=== PATIENT | female | born 1965 | race Caucasian/White ===

== ENCOUNTER 2018-10-17 18:08 | Emergency (ER) | payer MEDICAID ==
[~2018-10-17] VITALS: Ht 157.5 cm; Wt 53.0 kg
[2018-10-17 18:31] VITALS: BP 96/63
[2018-10-17] MEDS ORDERED: KETOROLAC 30 MG/1 ML ONE (18:48)
[2018-10-17] MEDS ORDERED: KETOROLAC 30 MG/1 ML IVPush ONE (19:00)
[2018-10-17] MEDS ORDERED: KETOROLAC 30 MG/1 ML IM ONE (19:00)
== END 2018-10-17 19:29 | disposition home or self-care (01) ==
LOC: ED 19:25
DX: M54.41 Lumbago with sciatica, right side (principal); G89.29 Other chronic pain; K21.9 Gastro-esophageal reflux disease without esophagitis; J44.9 Chronic obstructive pulmonary disease, unspecified
CPT/HCPCS: 96372; 99283; J1885

== ENCOUNTER 2019-02-19 13:35 | Emergency (ER) | payer MEDICAID ==
[~2019-02-19] VITALS: Ht 160 cm; Wt 50.8 kg
[2019-02-19 14:12] VITALS: BP 97/49
== END 2019-02-19 16:02 | disposition home or self-care (01) ==
LOC: ED 15:54
DX: S44.21XA Injury of radial nerve at upper arm level, right arm, initial encounter (principal); I80.8 Phlebitis and thrombophlebitis of other sites; J44.9 Chronic obstructive pulmonary disease, unspecified; K21.9 Gastro-esophageal reflux disease without esophagitis; F17.200 Nicotine dependence, unspecified, uncomplicated; X58.XXXA Exposure to other specified factors, initial encounter; Y93.89 Activity, other specified; Y92.89 Other specified places as the place of occurrence of the external cause; Y99.8 Other external cause status
CPT/HCPCS: 29125; 72050; 99284

== ENCOUNTER 2020-11-10 00:54 | Inpatient (IN) | payer MEDICAID ==
[~2020-11-10] VITALS: Ht 160 cm; Wt 50.5 kg
[~2020-11-10 00:54] MED LIST: BUDE10.2 INH; FLUO20CA23 PO; GABA300C10 PO; METH500T97 PO; SIMV5TAB14 PO; TRAZ50TA66 PO
--- NOTE | 2020-11-10 01:53 | NUR ---
PT HAS C/O DIZZINESS AND WEAKER THAN NORMAL R LEG FOR THE LAST COUPLE WEAKS. PT A/O X4. PT ON MONITOR WITH PT VSS. PT HAS FAMILY AT BED SIDE
[2020-11-10 01:57] LABS: MEAN CORPUSCULAR HGB CONC 34.8 g/dL (32.4-35.8); MEAN PLATELET VOLUME 7.7 fL (7.4-10.4); PLATELET COUNT 156 x10^3/uL (130-400); RED BLOOD COUNT 3.59 x10^6/uL (3.82-5.3); RED CELL DISTRIBUTION WIDTH 13.5 % (9.6-15.2)
[2020-11-10 02:07] LABS: ALBUMIN 3.2 g/dL (3.4-5.0); ANION GAP 11 mmol/L (5-15); CALCIUM 8.3 mg/dL (8.5-10.1); CHLORIDE 106 mmol/L (98-107); CREATININE 0.29 mg/dL (0.55-1.02)
[2020-11-10 02:32] LABS: MD YES
[2020-11-10 02:36] LABS: LYMPHS% (MANUAL) 50 % (22-44); MONOS% (MANUAL) 10 % (2-9); SEGS% (MANUAL) 40 % (42-75)
[2020-11-10 02:37] LABS: <PLATELET ESTIMATE> ADEQUATE; <PLT MORPHOLOGY> NORMAL PLT MORPH
--- NOTE | 2020-11-10 02:39 | NUR ---
PT RESTING IN BED WITH FAMILY AT PT SIDE. PT A/O X4 WITH UNLABORED EQUAL BREATHS. PT ON MONITOR WITH PT VSS. PT DENIED ANY CURRENT WANTS OR NEEDS AT THIS TIME.
--- NOTE | 2020-11-10 03:00 | NUR ---
REPORT TO SALAS DUARTE
--- NOTE | 2020-11-10 03:01 | NUR ---
bedside report from lindsay rn, pt care transferred at this time. pt nad, resting on gurney, vss, no change in condition, bed in lowest, rails engaged, call light on lap, significant other at , [facility].
[2020-11-10] MEDS ORDERED: ATOR10TA9 PO (03:05)
[2020-11-10] MEDS ORDERED: POTASSIUM CHLORIDE 40 MEQ in SODIUM CHLORIDE 0.9% 500 ML IV ONE ×2 (03:30→08:30)
[2020-11-10] MEDS ORDERED: POTASSIUM CHLORIDE 20 MEQ TAB.ER.PRT PO ONE (03:30)
[2020-11-10] MEDS ORDERED: POTASSIUM CHLORIDE 20 MEQ TAB.ER.PRT ONE (03:44)
[2020-11-10] MEDS ORDERED: METH-640 PO (03:58)
[2020-11-10] MEDS ORDERED: OXYBUTYNIN PO (03:58)
[2020-11-10] MEDS ORDERED: LAMO100T8 PO (03:59)
[2020-11-10 04:47] LABS: ALANINE AMINOTRANSFERASE 38 U/L (12-78); BILIRUBIN, DIRECT 0.2 mg/dL (0.1-0.2); BILIRUBIN,INDIRECT 0.1 mg/dL (0.0-2.0); BILIRUBIN,TOTAL 0.3 mg/dL (0.2-1.0)
[2020-11-10 04:48] LABS: ALKALINE PHOSPHATASE 131 U/L (45-117); TOTAL PROTEIN 6.6 g/dL (6.4-8.2)
[2020-11-10] MEDS ORDERED: ACETAMINOPHEN 325 MG TABLET PO PRN (05:00)
[2020-11-10] MEDS ORDERED: ONDANSETRON 2MG/ML, 2ML IVPush PRN (05:00)
[2020-11-10] MEDS ORDERED: ENALAPRILAT 1.25 MG/ML, 2ML IVPush PRN (05:00)
[2020-11-10] MEDS: GABAPENTIN 300 MG CAPSULE PO SCH ×4 (05:47→21:18)
[2020-11-10 06:42] VITALS: BP 129/75
[2020-11-10] MEDS ORDERED: MAGNESIUM SULFATE PMX 2GM/50ML 50 ML IV ONE (08:30)
[2020-11-10] MEDS: FLUTICASONE/VILANTEROL 200-25MCG/INH INH SCH (09:00)
[2020-11-10] MEDS: METHOCARBAMOL 750 MG TABLET PO SCH ×3 (09:22→21:18)
[2020-11-10 10:05] LABS: AMPHETAMINE SCREEN, URINE Negative (Negative); BARBITURATE SCREEN, URINE Negative (Negative); BENZODIAZEPINE SCREEN, URINE Negative (Negative); CANNABINOID SCREEN, URINE Negative (Negative); COCAINE SCREEN, URINE Negative (Negative); METHADONE SCREEN, URINE Negative (Negative); OPIATE SCREEN, URINE Negative (Negative)
[2020-11-10 11:09] LABS: ALBUMIN 3.5 g/dL (3.4-5.0); ANION GAP 5 mmol/L (5-15); CALCIUM 8.8 mg/dL (8.5-10.1); CHLORIDE 107 mmol/L (98-107); CREATININE 0.38 mg/dL (0.55-1.02)
[2020-11-10] MEDS: POTASSIUM CHLORIDE 20 MEQ, MAGNESIUM SULFATE 2 GM, THIAMINE 200 MG, MVI ADULT 10 ML, FO... IV SCH (13:11)
[2020-11-10 13:42] VITALS: BP 149/71
[2020-11-10] MEDS ORDERED: LORazepam 1MG TABLET PO PRN ×4 (15:30)
[2020-11-10] MEDS ORDERED: LORazepam 2 MG/ML, 1ML IV PRN ×5 (15:30)
[2020-11-10] MEDS ORDERED: LORazepam 0.5MG TABLET PO PRN (15:30)
[2020-11-10] MEDS ORDERED: GADOTERATE 5 MMOL/10ML SYR ONE (17:21)
[2020-11-10 19:58] VITALS: BP 145/82
[2020-11-10] MEDS ORDERED: LAMOTRIGINE 100 MG TABLET PO SCH (21:00)
[2020-11-11] MEDS: POTASSIUM CHLORIDE 20 MEQ, MAGNESIUM SULFATE 2 GM, THIAMINE 200 MG, MVI ADULT 10 ML, FO... IV SCH ×2 (00:42→11:16)
[2020-11-11 02:08] VITALS: BP 157/81
[2020-11-11 05:34] LABS: MEAN CORPUSCULAR HEMOGLOBIN 35.2 pg (27.0-34.8); MEAN CORPUSCULAR HGB CONC 34.5 g/dL (32.4-35.8); PLATELET COUNT 173 x10^3/uL (130-400); RED BLOOD COUNT 3.66 x10^6/uL (3.82-5.3)
[2020-11-11 05:37] LABS: CHLORIDE 110 mmol/L (98-107)
[2020-11-11 05:46] LABS: ALANINE AMINOTRANSFERASE 29 U/L (12-78); ALBUMIN 2.9 g/dL (3.4-5.0); ALKALINE PHOSPHATASE 103 U/L (45-117); ANION GAP 3 mmol/L (5-15); BILIRUBIN,TOTAL 0.7 mg/dL (0.2-1.0); CALCIUM 8.7 mg/dL (8.5-10.1); CHOL/HDL RATIO 2.5; CHOLESTEROL, TOTAL 157 mg/dL (140-239); CREATININE 0.37 mg/dL (0.55-1.02); HDL CHOL % 40 % (28-40); HDL CHOLESTEROL (DIRECT) 63 mg/dL (40-60); LDL CHOLESTEROL,CALCULATED 80 mg/dL (54-169); LDL/HDL RATIO 1.3 (0.5-3.0); TOTAL PROTEIN 6.4 g/dL (6.4-8.2); TRIGLYCERIDES 71 mg/dL (50-200); VLDL CHOLESTEROL 14 mg/dL (0-25)
[2020-11-11 06:40] VITALS: BP 161/80
[2020-11-11 06:43] LABS: MD YES
[2020-11-11 06:45] LABS: BAND#(MANUAL) 0.04 x10^3/uL; BANDS%(MANUAL) 1 % (0-7); BASOS#(MANUAL) 0.04 x10^3/uL (0-0.1); BASOS% (MANUAL) 1 % (0-1); EOS#(MANUAL) 0.13 x10^3/uL (0.0-0.4); EOS% (MANUAL) 3 % (1-7); LYMPH#(MANUAL) 1.94 x10^3/uL (1-3.4); LYMPHS% (MANUAL) 45 % (22-44); MONOS% (MANUAL) 7 % (2-9); REACTIVE LYMPHS # (MANUAL) 0.22 x10^3/uL (0-0); REACTIVE LYMPHS % (MANUAL) 5 % (0-0); SEG#(MANUAL) 1.63 x10^3/uL (1.8-6.8); SEGS% (MANUAL) 38 % (42-75)
[2020-11-11 06:47] LABS: <PLATELET ESTIMATE> ADEQUATE; <PLT MORPHOLOGY> NORMAL PLT MORPH
[2020-11-11] MEDS: FLUTICASONE/VILANTEROL 200-25MCG/INH INH SCH (07:31)
[2020-11-11] MEDS: GABAPENTIN 300 MG CAPSULE PO SCH ×2 (09:00→16:50)
[2020-11-11] MEDS: METHOCARBAMOL 750 MG TABLET PO SCH ×2 (09:00→16:50)
[2020-11-11 12:00] VITALS: BP 140/76
[2020-11-11] MEDS ORDERED: ALBUTEROL SULFATE 2.5 MG/3 ML ONE (14:03)
[2020-11-11] MEDS ORDERED: BUDESONIDE 0.5 MG/2 ML INHA INH SCH (21:00)
[2020-11-11] MEDS ORDERED: ALBUTEROL SULFATE 2.5 MG/3 ML NPPB SCH (21:00)
== END 2020-11-11 18:26 | disposition home or self-care (01) | DRG 204 ==
LOC: ED 02:50 → EDIP 03:31 → 4EST 04:37
PROVIDERS: ADMIT Family Medicine; ATTEND Internal Medicine
DX: R55 Syncope and collapse (principal); E83.42 Hypomagnesemia; Z99.81 Dependence on supplemental oxygen; D75.89 Other specified diseases of blood and blood-forming organs; E78.5 Hyperlipidemia, unspecified; E87.6 Hypokalemia; F10.220 Alcohol dependence with intoxication, uncomplicated; F17.210 Nicotine dependence, cigarettes, uncomplicated; G57.91 Unspecified mononeuropathy of right lower limb; G89.29 Other chronic pain; I08.0 Rheumatic disorders of both mitral and aortic valves; J44.9 Chronic obstructive pulmonary disease, unspecified; K21.9 Gastro-esophageal reflux disease without esophagitis; M47.816 Spondylosis without myelopathy or radiculopathy, lumbar region; M51.16 Intervertebral disc disorders with radiculopathy, lumbar region; Z91.19 Patient's noncompliance with other medical treatment and regimen; Y90.9 Presence of alcohol in blood, level not specified; F10.239 Alcohol dependence with withdrawal, unspecified
CPT/HCPCS: 36415; 70450; 70553; 72131; 72148; 80048; 80053; 80061; 80076; 80307; 80320; 82040; 82607; 83036; 83735; 84100; 84443; 85025; 93005; 93306; 93356; 93880; 96374; 99291; G0378; J3411; J3475; J3480; J7042; A9575; G0480; J7040